=== PATIENT | female | born 1995 | race Hispanic/Latino ===

== ENCOUNTER → 2022-03-07 | Outpatient (CLI) | payer MEDICARE | END | disposition home or self-care (01) | LOC: SHCH 12:50 | PROVIDERS: ATTEND Internal Medicine | DX: E11.9 Type 2 diabetes mellitus without complications (principal); R06.02 Shortness of breath | CPT/HCPCS: 93306 ==

== ENCOUNTER → 2023-05-13 | Outpatient (CLI) | payer MEDICARE | END | disposition home or self-care (01) | LOC: SHCH 14:24 | PROVIDERS: ATTEND Student in an Organized Health Care Education/Training Program | DX: R00.2 Palpitations (principal) | CPT/HCPCS: 93306 ==